=== PATIENT | female | born 1995 | race Caucasian/White ===

== ENCOUNTER 2018-07-02 08:09 | Emergency (ER) | payer OTHER ==
[2018-07-02 09:14] LABS: HIV (1/2) Antibody/Antigen Non-Reactive (NonReactive); HIV 1/2 INDEX 0.08 S/CO (<1.00); Hep C IgG Ab Non-Reactive (NonReactive); Hep C Index 0.14 S/CO (0-0.79)
[2018-07-02 10:20] LABS: HBSAB Concentration 38.18 mIU/mL; Hep B Surf AB Reactive (NonReactive)
== END 2018-07-02 08:45 | disposition home or self-care (01) ==
LOC: ERS 08:09
DX: S50.812A Abrasion of left forearm, initial encounter (principal); W46.1XXA Contact with contaminated hypodermic needle, initial encounter
CPT/HCPCS: 86706; 86803; 87389; 99283